=== PATIENT | male | born 1995 | race African-American/Black ===

== ENCOUNTER 2018-07-13 23:30 | Emergency (ER) | payer OTHER ==
[2018-07-14] MEDS: diphenhydrAMINE 50 MG CAP PO (00:48)
[2018-07-14] MEDS: FAMOTIDINE 20 MG TAB PO (00:49)
[2018-07-14] MEDS: predniSONE 20 MG TAB PO (00:49)
== END 2018-07-14 01:58 | disposition home or self-care (01) ==
LOC: M ED 23:30
DX: R22.0 Localized swelling, mass and lump, head (principal); T62.91XA Toxic effect of unspecified noxious substance eaten as food, accidental (unintentional), initial encounter; Y92.9 Unspecified place or not applicable; Y93.9 Activity, unspecified
CPT/HCPCS: 99283

== ENCOUNTER 2018-10-07 12:16 | Emergency (ER) | payer OTHER ==
[~2018-10-07] VITALS: Ht 185.4 cm; Wt 84.1 kg
[~2018-10-07 12:16] MED LIST: PRED20TA PO
[2018-10-07 13:05] LABS: BASO % 0.4 % (0.0-1.0); EOS # 0.2 10^3/uL (0.0-0.50); EOS % 2.7 % (0.0-3.0); HEMOGLOBIN 14.8 g/dl (13.5-17.5); LYMPH # 1.3 10^3/uL (1.5-6.5); LYMPH % 23.3 % (24.0-44.0); MEAN CORPUSCULAR HEMOGLOBIN 29.6 pg (27.0-33.0); MEAN CORPUSCULAR HGB CONC 33.6 g/dl (32.0-36.5); MONO # 0.4 10^3/uL (0.0-0.8); MONO % 7.1 % (0.0-5.0); NEUTROPHILS # 3.8 10^3/uL (1.8-7.7); NEUTROPHILS % 66.1 % (36.0-66.0); PLATELET COUNT, AUTOMATED 247 10^3/uL (150-450); WHITE BLOOD COUNT 5.7 10^3/uL (4.0-10.0)
[2018-10-07 13:35] LABS: BLOOD UREA NITROGEN 20 MG/DL (7-18); CALCIUM LEVEL 9.1 MG/DL (8.5-10.1); CARBON DIOXIDE LEVEL 29 MEQ/L (21-32); CHLORIDE LEVEL 102 MEQ/L (98-107); CREATININE FOR GFR 1.21 MG/DL (0.70-1.30); GLOMERULAR FILTRATION RATE > 60.0 (>60); GLUCOSE, FASTING 90 MG/DL (70-100); POTASSIUM SERUM 4.1 MEQ/L (3.5-5.1); SODIUM LEVEL 138 MEQ/L (136-145)
[2018-10-07] MEDS ORDERED: KETOROLAC TROMETHAMINE 10 MG TAB PO ONE (15:30)
[2018-10-07] MEDS ORDERED: KETO10TAB PO (16:07)
[2018-10-07 16:11] VITALS: BP 125/73
== END 2018-10-07 16:19 | disposition home or self-care (01) ==
LOC: M ED 12:16
DX: R10.9 Unspecified abdominal pain (principal)